=== PATIENT | female | born 1975 | race African-American/Black ===

== ENCOUNTER 2019-06-28 19:11 | Emergency (ER) | payer MEDICAID ==
[~2019-06-28] VITALS: Ht 162.6 cm; Wt 64.0 kg
[2019-06-28] MEDS ORDERED: ALBUTEROL (0.083%) 2.5MG/3ML NEB HHN STA (19:46)
[2019-06-28] MEDS ORDERED: IPRATROPIUM BROMIDE (0.02%) 0.5MG/2.5ML NEB HHN STA (19:46)
[2019-06-28] MEDS ORDERED: METHYLPREDNISOLONE SOD SUCC 125 MG/2 ML VIAL IM STA (19:46)
[2019-06-28 21:30] VITALS: BP 134/83
== END 2019-06-28 21:32 | disposition home or self-care (01) ==
LOC: ER 19:11
DX: J45.901 Unspecified asthma with (acute) exacerbation (principal); Z03.818 Encounter for observation for suspected exposure to other biological agents ruled out
CPT/HCPCS: 71045; 87635; 94640; 96372; 99283; J2930; Z7610

== ENCOUNTER 2023-06-12 19:41 | Emergency (ER) | payer MEDICAID ==
[~2023-06-12] VITALS: Ht 167.6 cm; Wt 78.0 kg
[2023-06-12] MEDS: DEXAMETHASONE 4MG TABLET PO ONE (20:50)
[2023-06-12 21:11] VITALS: PULSE 64; RESP 20; O2SAT 93
[2023-06-12] MEDS: IPRATROPIUM/ALBUTEROL 0.5-3(2.5)MG/3ML NEB HHN STA (21:11)
[2023-06-12 22:41] VITALS: PULSE 81; RESP 20; O2SAT 92
[2023-06-12] MEDS: IPRATROPIUM/ALBUTEROL 0.5-3(2.5)MG/3ML NEB HHN ONE (22:41)
[2023-06-12] MEDS ORDERED: ALBU18HF2 IH (23:40)
[2023-06-12 23:51] VITALS: BP 128/75; PULSE 81; RESP 20; TEMP 98.5
== END 2023-06-12 23:52 | disposition home or self-care (01) ==
LOC: ER 19:41
DX: J45.901 Unspecified asthma with (acute) exacerbation (principal)
CPT/HCPCS: 94640; 99283; J8540; Z7610 ×3

== ENCOUNTER 2023-09-16 16:15 | Emergency (ER) | payer MEDICAID, OTHER ==
[~2023-09-16] VITALS: Ht 165.1 cm; Wt 73.0 kg
[~2023-09-16 16:15] MED LIST: ALBU18HF2 IH
[2023-09-16 16:32] VITALS: TEMP 98.4; O2SAT 100
[2023-09-16] MEDS: METHYLPREDNISOLONE SOD SUCC 125MG/2ML (ACT-O-VIAL) IM STA (18:29)
[2023-09-16 18:51] VITALS: PULSE 88; RESP 20
[2023-09-16] MEDS: ALBUTEROL (0.083%) 2.5MG/3ML NEB HHN STA (18:51)
[2023-09-16] MEDS: IPRATROPIUM BROMIDE (0.02%) 0.5MG/2.5ML NEB HHN STA (18:51)
[2023-09-16] MEDS ORDERED: ALBU18HF2 IH (19:18)
[2023-09-16] MEDS ORDERED: P50 MT (19:18)
[2023-09-16 19:28] VITALS: BP 130/70; PULSE 80; RESP 15
== END 2023-09-16 19:29 | disposition home or self-care (01) ==
LOC: ER 16:15
DX: J45.901 Unspecified asthma with (acute) exacerbation (principal)
CPT/HCPCS: 94640; 93005; 96372; 99283; J2919; Z7610 ×3

== ENCOUNTER 2023-12-09 00:26 | Emergency (ER) | payer MEDICAID ==
[~2023-12-09] VITALS: Ht 175.3 cm; Wt 79.0 kg
[~2023-12-09 00:26] MED LIST changes: +FERR-63 PO; +P50 MT
[2023-12-09 00:30] VITALS: O2SAT 100
[2023-12-09] MEDS ORDERED: METHYLPREDNISOLONE SOD SUCC 125MG/2ML (ACT-O-VIAL) IV STA (00:37)
[2023-12-09 00:45] VITALS: RESP 22
[2023-12-09] MEDS ORDERED: IPRATROPIUM/ALBUTEROL 0.5-3(2.5)MG/3ML NEB HHN ONE (00:45)
[2023-12-09 01:28] LABS: BG BASE EXCESS -4.2 mmol/L (-2.0-3.0); BG CARBOXYHEMOGLOBIN 0.4 % (0.5-1.5); BG DEOXYHEMOGLOBIN 0.5 % (0.0-5.0); BG FRACTION INSPIRED OXYGEN 60; BG HCO3 ACT 21.9 mmol/L (21.0-28.0); BG OXYGEN SATURATION 99.5 % (94.0-98.0); BG OXYHEMOGLOBIN 99.1 % (94.0-98.0); BG PCO2 44.1 mmHg (32.0-45.0); BG PH 7.314 (7.350-7.450); BG PO2 237.9 mmHg (83.0-108.0); BG TOTAL HEMOGLOBIN 12.2 g/dL (12.0-16.0); BG VENT MODE MASK - BIPAP
[2023-12-09] MEDS: METHYLPREDNISOLONE SOD SUCC 125MG/2ML (ACT-O-VIAL) IV NR (01:48)
[2023-12-09 01:50] LABS: BASOPHILS % 0.2 % (0.0-2.0); EOSINOPHILS % 2.8 % (0.0-5.0); HEMATOCRIT. 35.5 % (36.0-48.0); HEMOGLOBIN. 11.7 g/dL (12.0-16.0); LYMPHOCYTES % 16.4 % (20.0-50.0); MEAN CORPUSCULAR HEMOGLOBIN 31.9 pg (28.0-32.0); MEAN CORPUSCULAR HGB CONC 33.1 g/dL (31.0-37.0); MEAN CORPUSCULAR VOLUME 96.5 fL (81.0-99.0); MEAN PLATELET VOLUME 7.1 fl (7.4-10.4); MONOCYTES % 7.5 % (2.0-8.0); NEUTROPHILS % 73.1 % (40.0-76.0); PLATELET 316 x1000/uL (130-400); RED BLOOD CELL COUNT 3.68 mill/uL (4.2-5.4); RED CELL DISTRIBUTION WIDTH 14.9 % (11.6-14.6); WHITE BLOOD COUNT 7.6 x1000/uL (4.5-11.0)
[2023-12-09] MEDS: MAGNESIUM 2 G PREMIX 50 ML IV ONE (02:14)
[2023-12-09 02:39] VITALS: RESP 18
[2023-12-09] MEDS: IPRATROPIUM/ALBUTEROL 0.5-3(2.5)MG/3ML NEB HHN NR (02:39)
[2023-12-09 03:21] LABS: CHLORIDE 108 mEq/L (98-107); POTASSIUM 4.3 mEq/L (3.5-5.1); SODIUM 138 mEq/L (136-145)
[2023-12-09 03:22] LABS: CALCIUM 10.7 mg/dL (8.7-10.4); CARBON DIOXIDE 25 mEq/L (21-32)
[2023-12-09 03:27] LABS: CREATININE 0.8 mg/dL (0.6-1.0); GLUCOSE 88 mg/dL (70-105); UREA NITROGEN BLOOD 12 mg/dL (9-23)
[2023-12-09 04:06] LABS: TROPONIN I HIGH SENSITIVITY < 4 ng/L (3.0-34)
[2023-12-09 06:47] VITALS: BP 144/82; PULSE 96; RESP 18; TEMP 37.16964; O2SAT 100
[2023-12-09] MEDS ORDERED: TOPUD MT (06:50)
[2023-12-09] MEDS ORDERED: ALBU18HF2 IH (06:50)
[2023-12-09] MEDS ORDERED: P50 MT (06:50)
== END 2023-12-09 07:52 | disposition home or self-care (01) ==
LOC: ER 00:26
DX: J45.909 Unspecified asthma, uncomplicated (principal)
CPT/HCPCS: 80048; 83880; 85025; 84484; 36415; 71045; 94640; 82805; 82375; 93005; 96365; 96375; 99291; 36600; J3475; J2919; Z7610 ×4; 94660; 99285

== ENCOUNTER 2024-01-21 18:23 | Emergency (ER) | payer MEDICAID, OTHER ==
[~2024-01-21] VITALS: Ht 160 cm; Wt 66.0 kg
[~2024-01-21 18:23] MED LIST changes: +TOPUD MT
[2024-01-21 18:24] VITALS: O2SAT 100
[2024-01-21] MEDS: PREDNISONE 20MG TABLET PO STA (18:44)
[2024-01-21 19:40] VITALS: PULSE 81; RESP 18
[2024-01-21] MEDS: IPRATROPIUM BROMIDE (0.02%) 0.5MG/2.5ML NEB HHN STA (19:40)
[2024-01-21] MEDS: ALBUTEROL (0.083%) 2.5MG/3ML NEB HHN STA (19:40)
[2024-01-21] MEDS ORDERED: ALBU18HF2 IH (21:04)
[2024-01-21] MEDS ORDERED: P20 MT (21:04)
[2024-01-21 21:18] VITALS: BP 126/66; PULSE 81; RESP 18; TEMP 36.66960; O2SAT 100
== END 2024-01-21 21:22 ==
LOC: ER 18:23
DX: J45.901 Unspecified asthma with (acute) exacerbation (principal); Z79.899 Other long term (current) drug therapy
CPT/HCPCS: 94644; 99285; J7512; Z7610 ×2; 94640

== ENCOUNTER 2024-02-15 22:55 | Inpatient (IN) | payer OTHER ==
[~2024-02-15] VITALS: Ht 172.7 cm; Wt 56.7 kg
[~2024-02-15 22:55] MED LIST changes: +P20 MT
[2024-02-15 23:30] VITALS: BP 127/78; PULSE 82; RESP 22; O2SAT 99
[2024-02-15] MEDS ORDERED: HETASTARCH/NORMAL SALINE 500 ML PLAST..BAG IV ONE (23:30)
[2024-02-15 23:45] VITALS: BP 130/79; PULSE 83; RESP 23; O2SAT 99
[2024-02-15] MEDS ORDERED: INSULIN REGULAR (HUMULIN R) 1000UNITS/10ML VIAL IV SCH (23:45)
[2024-02-16] VITALS (107 sets, daily range): BP systolic 73–221; BP diastolic 50–129; PULSE 77–97; RESP 15–34; TEMP 36.33624–36.6696; O2SAT 89–100
[2024-02-16] MEDS: LINEZOLID 600 MG PREMIX 300 ML IV SCH (00:15)
[2024-02-16] MEDS: ALBUMIN HUMAN 25GM/500ML (5%) IV NR (00:16)
[2024-02-16] MEDS: VASOPRESSIN 40 UNIT in SODIUM CHLORIDE 0.9% 98 ML IV PRN (00:17)
[2024-02-16] MEDS: THIAMINE HCL 500 MG in SODIUM CHLORIDE 0.9% 50 ML IV NR (00:38)
[2024-02-16 00:41] LABS: HEMATOCRIT. 25.5 % (36.0-48.0); HEMOGLOBIN. 8.4 g/dL (12.0-16.0); MEAN CORPUSCULAR HEMOGLOBIN 32.3 pg (28.0-32.0); MEAN CORPUSCULAR HGB CONC 32.9 g/dL (31.0-37.0); MEAN CORPUSCULAR VOLUME 98.3 fL (81.0-99.0); MEAN PLATELET VOLUME 7.8 fl (7.4-10.4); PLATELET 190 x1000/uL (130-400); RED CELL DISTRIBUTION WIDTH 14.5 % (11.6-14.6); WHITE BLOOD COUNT 17.5 x1000/uL (4.5-11.0)
[2024-02-16 00:46] LABS: CHLORIDE 126 mEq/L (98-107); POTASSIUM 4.9 mEq/L (3.5-5.1)
[2024-02-16 00:47] LABS: CALCIUM 10.3 mg/dL (8.7-10.4); CARBON DIOXIDE 26 mEq/L (21-32)
[2024-02-16 00:50] LABS: DIFFERENTIAL COMMENT 1
[2024-02-16 00:52] LABS: CREATININE 1.3 mg/dL (0.6-1.0); GLUCOSE 200 mg/dL (70-105); UREA NITROGEN BLOOD 51 mg/dL (9-23)
[2024-02-16 00:53] LABS: CREATINE KINASE MB FRACTION < 0.5 ng/mL (0.5-3.6)
[2024-02-16 00:54] LABS: AMYLASE 45 IU/L (30-118); CREATINE KINASE 156 IU/L (34-145); PHOSPHORUS 3.5 mg/dL (2.5-4.9)
[2024-02-16 00:57] LABS: INR 0.9; PARTIAL THROMBOPLASTIN TIME 27.9 sec (23.4-31.0); PROTHROMBIN TIME 9.8 sec (9.6-11.0)
[2024-02-16 01:03] LABS: LACTATE DEHYDROGENASE 829 IU/L (120-246)
[2024-02-16] MEDS: METHYLPREDNISOLONE SOD SUCC 500 MG in DEXT 5% WATER 100 ML IV SCH ×2 (01:10→06:30)
[2024-02-16 01:12] LABS: SODIUM 157 mEq/L (136-145)
[2024-02-16 01:26] LABS: BG BASE EXCESS -1.2 mmol/L (-2.0-3.0); BG CARBOXYHEMOGLOBIN 0.3 % (0.5-1.5); BG FRACTION INSPIRED OXYGEN 40; BG METHEMOGLOBIN 0.3 % (0.5-1.5); BG OXYHEMOGLOBIN 98.4 % (94.0-98.0); BG PCO2 48.5 mmHg (32.0-45.0); BG PO2 169.5 mmHg (83.0-108.0); BG SAMPLE SITE RIGHT RADIAL; BG TOTAL HEMOGLOBIN 11.1 g/dL (12.0-16.0); BG VENT MODE VENT - APRV
[2024-02-16] MEDS: FUROSEMIDE 40MG/4ML VIAL IVP NR (02:17)
[2024-02-16] MEDS: INSULIN REGULAR 100U/100ML PMX 100 ML IV PRN (03:00)
[2024-02-16 06:25] LABS: BG BASE EXCESS -2.1 mmol/L (-2.0-3.0); BG CARBOXYHEMOGLOBIN 0.3 % (0.5-1.5); BG DEOXYHEMOGLOBIN 1.7 % (0.0-5.0); BG FRACTION INSPIRED OXYGEN 40; BG HCO3 ACT 25.1 mmol/L (21.0-28.0); BG METHEMOGLOBIN 0.3 % (0.5-1.5); BG OXYGEN SATURATION 98.3 % (94.0-98.0); BG OXYHEMOGLOBIN 97.7 % (94.0-98.0); BG PCO2 56.7 mmHg (32.0-45.0); BG PH 7.264 (7.350-7.450); BG PO2 133.6 mmHg (83.0-108.0); BG SAMPLE SITE RIGHT RADIAL; BG TOTAL HEMOGLOBIN 8.3 g/dL (12.0-16.0); BG VENT MODE VENT - APRV
[2024-02-16 06:30] LABS: HEMATOCRIT. 26.3 % (36.0-48.0); HEMOGLOBIN. 8.4 g/dL (12.0-16.0); MEAN CORPUSCULAR HEMOGLOBIN 31.4 pg (28.0-32.0); MEAN CORPUSCULAR HGB CONC 31.9 g/dL (31.0-37.0); MEAN CORPUSCULAR VOLUME 98.5 fL (81.0-99.0); MEAN PLATELET VOLUME 8.1 fl (7.4-10.4); PLATELET 214 x1000/uL (130-400); RED BLOOD CELL COUNT 2.67 mill/uL (4.2-5.4); RED CELL DISTRIBUTION WIDTH 14.7 % (11.6-14.6); WHITE BLOOD COUNT 15.1 x1000/uL (4.5-11.0)
[2024-02-16] MEDS: FUROSEMIDE 40MG/4ML VIAL IVP SCH (06:30)
[2024-02-16] MEDS: THIAMINE HCL 100 MG in SODIUM CHLORIDE 0.9% 49 ML IV SCH (06:30)
[2024-02-16 06:39] LABS: CHLORIDE 122 mEq/L (98-107)
[2024-02-16 06:40] LABS: CALCIUM 10.5 mg/dL (8.7-10.4); CARBON DIOXIDE 28 mEq/L (21-32)
[2024-02-16 06:44] LABS: CREATINE KINASE MB FRACTION < 0.5 ng/mL (0.5-3.6); GAMMA GLUTAMYL TRANSPEPTIDASE 32 IU/L (<38); PHOSPHORUS 4.9 mg/dL (2.5-4.9)
[2024-02-16 06:45] LABS: CREATININE 1.4 mg/dL (0.6-1.0); GLUCOSE 89 mg/dL (70-105); UREA NITROGEN BLOOD 57 mg/dL (9-23)
[2024-02-16 06:46] LABS: AMYLASE 40 IU/L (30-118); PROTEIN TOTAL 7.4 g/dL (6.0-8.3)
[2024-02-16 06:47] LABS: ALANINE AMINOTRANSFERASE 27 IU/L (10-49); ASPARTATE AMINOTRANSFERASE 24 IU/L (<34); CREATINE KINASE 157 IU/L (34-145)
[2024-02-16 06:48] LABS: BILIRUBIN TOTAL < 0.2 mg/dL (0.1-1.0)
[2024-02-16 06:56] LABS: INR 0.9; PARTIAL THROMBOPLASTIN TIME 25.9 sec (23.4-31.0); PROTHROMBIN TIME 9.8 sec (9.6-11.0)
[2024-02-16 06:57] LABS: LACTATE DEHYDROGENASE 911 IU/L (120-246)
[2024-02-16 07:08] LABS: CLARITY URINE CLEAR (CLEAR); COLOR URINE YELLOW (YELLOW); GLUCOSE URINE NEGATIVE (NEGATIVE); KETONES URINE NEGATIVE (NEGATIVE); NITRITE URINE NEGATIVE (NEGATIVE); OCCULT BLOOD URINE TRACE (NEGATIVE); PROTEIN URINE NEGATIVE (NEGATIVE)
[2024-02-16 07:09] LABS: LEUKOCYTE ESTERASE URINE 2+ (NEGATIVE); UROBILINOGEN URINE 0.2 E.U./dL (0.2-1.0)
[2024-02-16 07:22] LABS: PLATELET ESTIMATE NORMAL
[2024-02-16] MEDS: SODIUM ZIRCONIUM CYCLOSILICATE 10GM/PACKET PO NR (07:46)
[2024-02-16 08:12] LABS: BACTERIA URINE 1+; SQUAMOUS EPITHELIAL CELL URINE FEW /lpf (RARE/1+); WBC URINE 15-25 /hpf (0-2); YEAST URINE NONE SEEN
[2024-02-16 08:27] LABS: DIFFERENTIAL COMMENT 1
[2024-02-16] MEDS: ALBUTEROL (0.083%) 2.5MG/3ML NEB HHN NR (08:49)
[2024-02-16 08:51] LABS: BILIRUBIN DIRECT < 0.1 mg/dL (<=3.0)
[2024-02-16 08:54] LABS: SODIUM 157 mEq/L (136-145)
[2024-02-16 09:53] LABS: CLARITY URINE CLEAR (CLEAR); COLOR URINE YELLOW (YELLOW); GLUCOSE URINE NEGATIVE (NEGATIVE); KETONES URINE NEGATIVE (NEGATIVE); LEUKOCYTE ESTERASE URINE TRACE (NEGATIVE); NITRITE URINE NEGATIVE (NEGATIVE); OCCULT BLOOD URINE 2+ (NEGATIVE); PROTEIN URINE NEGATIVE (NEGATIVE); SPECIFIC GRAVITY URINE 1.009 (1.005-1.030); UROBILINOGEN URINE 0.2 E.U./dL (0.2-1.0)
[2024-02-16 10:00] LABS: WBC URINE 0-2 /hpf (0-2)
[2024-02-16 10:01] LABS: BACTERIA URINE 1+; SQUAMOUS EPITHELIAL CELL URINE FEW /lpf (RARE/1+); YEAST URINE NONE SEEN
[2024-02-16] MEDS: LABETALOL 5MG/ML 4ML INJ IV NR ×2 (11:38→23:12)
[2024-02-16 12:38] LABS: HEMATOCRIT. 28.3 % (36.0-48.0); MEAN CORPUSCULAR HEMOGLOBIN 31.6 pg (28.0-32.0); MEAN CORPUSCULAR VOLUME 98.9 fL (81.0-99.0); MEAN PLATELET VOLUME 8.4 fl (7.4-10.4); PLATELET 209 x1000/uL (130-400); RED BLOOD CELL COUNT 2.86 mill/uL (4.2-5.4); RED CELL DISTRIBUTION WIDTH 14.9 % (11.6-14.6); WHITE BLOOD COUNT 16.9 x1000/uL (4.5-11.0)
[2024-02-16 12:40] LABS: NUCLEATED RED BLOOD CELLS 3 /100 WBC
[2024-02-16 12:41] LABS: PLATELET ESTIMATE NORMAL
[2024-02-16 12:42] LABS: DIFFERENTIAL COMMENT 1
[2024-02-16 12:46] LABS: INR 0.9; PARTIAL THROMBOPLASTIN TIME 25.8 sec (23.4-31.0)
[2024-02-16 12:48] LABS: CARBON DIOXIDE 27 mEq/L (21-32); CHLORIDE 117 mEq/L (98-107)
[2024-02-16 12:49] LABS: CALCIUM 10.9 mg/dL (8.7-10.4)
[2024-02-16 12:54] LABS: CREATINE KINASE MB FRACTION < 0.5 ng/mL (0.5-3.6); CREATININE 1.5 mg/dL (0.6-1.0); GLUCOSE 100 mg/dL (70-105); UREA NITROGEN BLOOD 62 mg/dL (9-23)
[2024-02-16 12:55] LABS: ALANINE AMINOTRANSFERASE 26 IU/L (10-49); AMYLASE 46 IU/L (30-118); ASPARTATE AMINOTRANSFERASE 27 IU/L (<34)
[2024-02-16 12:56] LABS: BILIRUBIN TOTAL 0.2 mg/dL (0.1-1.0); CREATINE KINASE 174 IU/L (34-145); PHOSPHORUS 3.4 mg/dL (2.5-4.9); PROTEIN TOTAL 7.3 g/dL (6.0-8.3)
[2024-02-16 13:06] LABS: LACTATE DEHYDROGENASE 1076 IU/L (120-246)
[2024-02-16 13:12] LABS: BG BASE EXCESS 1.4 mmol/L (-2.0-3.0); BG CARBOXYHEMOGLOBIN 0.2 % (0.5-1.5); BG DEOXYHEMOGLOBIN 0.9 % (0.0-5.0); BG FRACTION INSPIRED OXYGEN 40; BG HCO3 ACT 26.3 mmol/L (21.0-28.0); BG METHEMOGLOBIN 0.3 % (0.5-1.5); BG OXYGEN SATURATION 99.1 % (94.0-98.0); BG OXYHEMOGLOBIN 98.6 % (94.0-98.0); BG PCO2 43.2 mmHg (32.0-45.0); BG PH 7.403 (7.350-7.450); BG PO2 158.1 mmHg (83.0-108.0); BG SAMPLE SITE RIGHT RADIAL; BG TOTAL HEMOGLOBIN 10.6 g/dL (12.0-16.0); BG VENT MODE VENT - APRV
[2024-02-16 13:22] LABS: BILIRUBIN DIRECT < 0.1 mg/dL (<=3.0)
[2024-02-16 13:23] LABS: SODIUM 156 mEq/L (136-145)
[2024-02-16] MEDS: AZITHROMYCIN 500MG/250ML 250 ML IV SCH (14:13)
[2024-02-16] MEDS: SODIUM POLYSTYRENE SULFONATE 15 G/60 ML BOT PO SCH (14:29)
[2024-02-16 15:14] LABS: NUCLEATED RED BLOOD CELLS 2 /100 WBC; PLATELET ESTIMATE NORMAL
[2024-02-16] MEDS: LABETALOL 5MG/ML 4ML INJ IV PRN (15:33)
[2024-02-16] MEDS: LABETALOL 5MG/ML 4ML INJ IV ONE (19:34)
[2024-02-16] MEDS: ALBUTEROL (0.083%) 2.5MG/3ML NEB HHN SCH (20:14)
[2024-02-16 22:30] LABS: HEMATOCRIT. 29.5 % (36.0-48.0); HEMOGLOBIN. 9.7 g/dL (12.0-16.0); MEAN CORPUSCULAR HEMOGLOBIN 31.7 pg (28.0-32.0); MEAN PLATELET VOLUME 8.7 fl (7.4-10.4); PLATELET 211 x1000/uL (130-400); RED BLOOD CELL COUNT 3.07 mill/uL (4.2-5.4); RED CELL DISTRIBUTION WIDTH 14.3 % (11.6-14.6); WHITE BLOOD COUNT 17.3 x1000/uL (4.5-11.0)
[2024-02-16 22:34] LABS: DIFFERENTIAL COMMENT 1
[2024-02-16 22:39] LABS: CHLORIDE 111 mEq/L (98-107); POTASSIUM 3.8 mEq/L (3.5-5.1); SODIUM 151 mEq/L (136-145)
[2024-02-16 22:40] LABS: CALCIUM 10.4 mg/dL (8.7-10.4); CARBON DIOXIDE 28 mEq/L (21-32)
[2024-02-16 22:42] LABS: INR 0.9; PARTIAL THROMBOPLASTIN TIME 26.2 sec (23.4-31.0); PROTHROMBIN TIME 10.1 sec (9.6-11.0)
[2024-02-16 22:45] LABS: CREATININE 1.7 mg/dL (0.6-1.0); GLUCOSE 151 mg/dL (70-105); UREA NITROGEN BLOOD 75 mg/dL (9-23)
[2024-02-16 22:46] LABS: PHOSPHORUS 4.9 mg/dL (2.5-4.9)
[2024-02-16 22:47] LABS: ALANINE AMINOTRANSFERASE 26 IU/L (10-49); AMYLASE 42 IU/L (30-118); ASPARTATE AMINOTRANSFERASE 27 IU/L (<34); CREATINE KINASE 191 IU/L (34-145); CREATINE KINASE MB FRACTION < 0.5 ng/mL (0.5-3.6)
[2024-02-16 22:48] LABS: BILIRUBIN TOTAL 0.2 mg/dL (0.1-1.0); PROTEIN TOTAL 7.2 g/dL (6.0-8.3)
[2024-02-16 22:51] LABS: BILIRUBIN DIRECT < 0.1 mg/dL (<=3.0)
[2024-02-16 22:57] LABS: PLATELET ESTIMATE NORMAL
[2024-02-16 23:08] LABS: LACTATE DEHYDROGENASE 1247 IU/L (120-246)
[2024-02-16 23:50] LABS: BG BASE EXCESS 2.6 mmol/L (-2.0-3.0); BG CARBOXYHEMOGLOBIN 0.3 % (0.5-1.5); BG DEOXYHEMOGLOBIN 1.3 % (0.0-5.0); BG FRACTION INSPIRED OXYGEN 40; BG HCO3 ACT 27.1 mmol/L (21.0-28.0); BG METHEMOGLOBIN 0.3 % (0.5-1.5); BG OXYGEN SATURATION 98.7 % (94.0-98.0); BG OXYHEMOGLOBIN 98.1 % (94.0-98.0); BG PCO2 41.7 mmHg (32.0-45.0); BG PH 7.431 (7.350-7.450); BG PO2 127.5 mmHg (83.0-108.0); BG SAMPLE SITE LEFT RADIAL; BG TOTAL HEMOGLOBIN 10.7 g/dL (12.0-16.0); BG VENT MODE APRV
== END 2024-02-17 00:30 | DRG 52 ==
LOC: MICUSO 22:55
PROVIDERS: ADMIT Internal Medicine
PROC: 5A1935Z Respiratory Ventilation, Less than 24 Consecutive Hours (ICD-10-PCS; 2024-02-15)
PROC: 30233N1 Transfusion of Nonautologous Red Blood Cells into Peripheral Vein, Percutaneous Approach (ICD-10-PCS; principal; 2024-02-16)
PROC: 05HY33Z Insertion of Infusion Device into Upper Vein, Percutaneous Approach (ICD-10-PCS; 2024-02-16)
PROC: B54MZZA Ultrasonography of Right Upper Extremity Veins, Guidance (ICD-10-PCS; 2024-02-16)
DX: I46.9 Cardiac arrest, cause unspecified; J69.0 Pneumonitis due to inhalation of food and vomit; A41.9 Sepsis, unspecified organism; G93.40 Encephalopathy, unspecified; J44.89 Other specified chronic obstructive pulmonary disease; N39.0 Urinary tract infection, site not specified; E66.9 Obesity, unspecified; I48.91 Unspecified atrial fibrillation; Z68.1 Body mass index [BMI] 19.9 or less, adult; Z79.899 Other long term (current) drug therapy
CPT/HCPCS: 36415; 36600; 71045; 76705; 80048; 80076; 81003; 82150; 82375; 82550; 82553; 82805; 82962; 82977; 83605; 83615; 83735; 84100; 85025; 86850; 86900; 86920; 87070; 87077; 87186; 93005; 94640; J0456; J1815; J1940; J2020; J2930; J3411; J3490; J7050; J7060; P9016; P9041